=== PATIENT | male | born 1945 | race Caucasian/White ===

== ENCOUNTER → 2019-12-07 | Outpatient (CLI) | payer BC, OTHER ==
[~2019-12-07] MED LIST: ASPIRIN325 PO; AZOR 10-40 MG1 EACH PO; BAYER ADVANCED500 MG PO; BYSTOLIC10 MG PO; BYSTOLIC20 MG PO; CATAPRES-TTS 20.2 MG TD; CENTRUM SPECIA1 EAC1 PO; CLONIDINE HCL0.2 M2 PO; CLOPIDOGREL75 MG PO; EFFIENT10 MG PO; FENOFIBRATE134 MG PO; FISH OIL SOFTG1 EACH PO; GLUCOPHAGE500 MG PO; HYDROCHLOROTHIA25 M1 PO; HYTRIN 5 M5 MG/1 CAP PO; LIPITOR80 MG PO; NITROGLYCERIN0.4 MG SL
== END ==
LOC: SJCVCIMAG 09:22
DX: R06.02 Shortness of breath (principal); I25.10 Atherosclerotic heart disease of native coronary artery without angina pectoris; I65.23 Occlusion and stenosis of bilateral carotid arteries; E78.00 Pure hypercholesterolemia, unspecified; I10 Essential (primary) hypertension; I35.0 Nonrheumatic aortic (valve) stenosis; R79.89 Other specified abnormal findings of blood chemistry; R94.39 Abnormal result of other cardiovascular function study; Z87.891 Personal history of nicotine dependence

== ENCOUNTER → 2019-12-15 | Outpatient (CLI) | payer BC, OTHER ==
[~2019-12-15] VITALS: Ht 180.3 cm; Wt 121.6 kg
[~2019-12-15] MED LIST changes: +AMARYL2 M1 PO; +ASA81BEC PO; +EDARBYCLOR 40-1 EAC1 PO; +GLUCOSAMINE &1 EACH PO; +MECLIZINE HCL25 MG PO; +NORVASC10 MG PO; +ROSUVASTATIN CA20 MG PO; +SINGULAIR 10 MG10 MG PO; +SPIRONOLACTONE25 MG PO; +SYMBICORT80 MCG/4.1 INH; +TERAZOSIN HCL10 MG PO; +TRESIBA100 UNIT/1 SUBQ; +TURMERIC 500 M1 EACH PO
[2019-12-15 08:55] LABS: CALCIUM 9.4 mg/dL (8.5-10.1); CREATININE 1.2 mg/dL (0.7-1.3); POTASSIUM 4.4 mmol/L (3.5-5.1)
[2019-12-15 09:34] LABS: HEMATOCRIT 38.9 % (42.0-52.0); MCH 29.8 pg (26.0-34.0); MCHC 33.4 g/dL (28.0-37.0); MCV 89.3 fL (80.0-100.0); RBC 4.36 mil/uL (4.50-6.00); RDW 14.9 % (10.5-14.5); WBC 8.1 thou/uL (4.0-11.0)
[2019-12-15 09:41] VITALS: BP 132/49
--- NOTE | 2019-12-15 09:49 | EKG ---
[facility] [place] [place] [address] ELECTROCARDIOGRAM REPORT Name: Rudy GERMAN Room #: REG [facility].#: [id number] Admission: 12/15/19 Attend Phys: Burt Bright MD, Discharge: Date of : 47 Report #: [id number] THIS REPORT FOR: cc: ABIEL SOUTH Physician not on staff Luis Carlos Amezquita MD ~ THIS REPORT FOR: //name// [facility] Test Date: 2019-12-15 Test Time: 09:16:36 Pat Name: Rudy GERMAN Department: Room: Gender: Wholesale Account Manager: Fariba ROGERS : 1945 Requested By: Burt Bright Order Number: [id number] MD: Luis Carlos Amezquita Measurements Intervals [employer] Rate: 77 P: 35 IL: 242 QRS: -48 QRSD: 136 T: 85 QT: 409 QTc: 463 Interpretive Statements Sinus rhythm Prolonged IL interval Left bundle branch block Compared to ECG 05/07/2013 07:12:54 First degree AV block now present Left-axis deviation no longer present Electronically Signed On 12-15-2019 9:48:09 CDT by Luis Carlos Amezquita [email or web address] <ELECTRONICALLY SIGNED> By: Luis Carlos Amezquita MD 12/15/1947 5 5 Luis Carlos Amezquita MD /EPI
[2019-12-15 15:13] LABS: ABSOLUTE NEUTROPHILS 5.3 thou/uL (1.4-8.2); BASOPHILS 0.4 % (0.0-2.0); EOSINOPHILS 1.3 % (0.0-3.0); HEMATOCRIT 38.4 % (42.0-52.0); HEMOGLOBIN 12.9 gm/dL (14.0-18.0); LYMPHOCYTES 17.3 % (24.0-44.0); MCH 29.9 pg (26.0-34.0); MCHC 33.6 g/dL (28.0-37.0); MCV 89.2 fL (80.0-100.0); MONOCYTES 9.5 % (1.0-8.0); PLATELET COUNT 194 thou/uL (150-400); POLYS 71.5 % (36.0-66.0); RDW 14.8 % (10.5-14.5); WBC 7.4 thou/uL (4.0-11.0)
[2019-12-15 15:19] LABS: CALCIUM 8.8 mg/dL (8.5-10.1); CREATININE 1.2 mg/dL (0.7-1.3); POTASSIUM 4.6 mmol/L (3.5-5.1)
[2019-12-15 15:22] LABS: APTT 25.8 Seconds (24.5-32.8); INR 1.1; PROTIME 11.1 Seconds (9.3-11.4)
[2019-12-15 15:24] LABS: TOTAL BILIRUBIN 1.4 mg/dL (<0.1-1.0); TOTAL PROTEIN 7.8 g/dL (6.4-8.2)
[2019-12-15 16:25] LABS: URINE BILIRUBIN NEGATIVE (Negative); URINE BLOOD NEGATIVE (Negative); URINE CLARITY CLEAR; URINE COLOR YELLOW; URINE GLUCOSE-RANDOM* NEGATIVE (Negative); URINE KETONES NEGATIVE (Negative); URINE LEUKOCYTES-REFLEX NEGATIVE (Negative); URINE NITRITE-REFLEX NEGATIVE (Negative); URINE PROTEIN (DIPSTICK) NEGATIVE (Negative); URINE UROBILINOGEN 0.2 E.U./dl (0.2-1.0)
[2019-12-16 04:07] LABS: GLYCOHEMOGLOBIN (HGB A1C) 6.9 % (4.8-5.6)
--- NOTE | 2019-12-16 16:35 | CATHLAB ---
[facility] [place] [address] [place] [address] INVASIVE PROCEDURE REPORT Name: MAXIRudy LLOYDROBERT Room #: REG ELYSE DixonChau#: [id number] Admission: 12/15/19 Attend Phys: Burt Bright MD, Discharge: Date of : 47 Report #: [id number] THIS REPORT FOR: cc: ABIEL SOUTH Physician not on staff Burt Bright MD [facility] ~ APPROVED REPORT Study performed: 12/15/2019 12:39:10 Patient Details Patient Status: Out-Patient Room #: The patient is a 74 year-old male Event Personnel Burt Bright Director Of Psychiatry, Vaishnavi Peter RN RN, Fred Raman RT(R)(CV) Job Kennedy Sherra RTR Monitor Procedures Performed Art Access - R femoral artery* Willian Access - R femoral vein Right and Left Heart Cath w/or w/o Coronarie [id number] [facility] Aortogram Abdominal Peripheral Angio [id number] Initial Mod Sed Same Phys/QHP [facility] [id number] Mod Sed Same Phys/QHP Ea [id number] Procedure Narrative The Right Groin^ was infiltrated with 1% Lidocaine subcutaneous anesthesia. A Right Heart Catheterization was performed with a 7 Fr. Wetmore-Omar catheter and pressure were recorded. Cardiac outputs were obtained by the Thermal Dilution method. A PINNACLE 6FR Sheath #[id number] sheath was inserted into the RFA^. Coronary angiography was performed using coronary diagnostic catheters. The right coronary system was accessed and visualized with a JR4 catheter. The left coronary system was accessed and visualized with a JL4 catheter. The left ventricle was accessed and visualized with a PIGTAIL catheter. Left ventriculogram was performed in 30 degree projection. An aortogram of the abdominal aorta was performed. Closure device was deployed with a 6 Fr MYNX CONTROL 6F/7F L#[id number]. Hemostasis was obtained with manual pressure following sheath removal without any complications. The patient tolerated the procedure well and there were no complications associated with the procedure. There was no hematoma. Intraoperative Conscious Sedation [facility] [address] [place] [address] INVASIVE PROCEDURE REPORT Name: Rudy GERMAN Room #: LLOYD Hartman#: [id number] Admission: 12/15/19 Attend Phys: Burt Bright, Discharge: Date of : 47 Report #: [id number] Sedation start time: 1307 Case end Time: 1346 Fentanyl 50 mcg Versed 1 mg Fluoro Time: 4.39 minutes Dose: DAP 7336.90 cGycm2 660 mGy Contrast Type and Amount: Visipaque 110 ml Hemodynamics The right atrial mean pressure is 4 mmHg. The right ventricular pressure is 44/-3 mmHg. The pulmonary artery pressure is 43/5 mmHg with a mean of 21 mmHg. The mean pulmonary capillary wedge pressure is 13 mmHg. The aortic pressure is 153/64 mmHg with a mean of 28 mmHg. The left ventricular pressure is 153/6 mmHg with a mean of mmHg. The left ventricular end diastolic pressure is 18 mmHg. The cardiac output using thermo method is 6.55 L/min. The cardiac index using thermo method is 2.73 L/min/m2. Conclusion #1. Normal left ventricular size and systolic function lower limits of normal EF 50 to 55% #2 left main moderate size giving rise to LAD and circumflex #3 the LAD is significant ostial proximal calcification in the 90% range. Mild proximal disease well preserved distal vessel mildly diseased this does wrap the apex. #4 circumflex OM also has a subtotal ostial stenosis but it does briskly fill a large OM system #5 dominant right with mild disease giving rise into the distal right actually has subtotally occluded with some collateral filling to the PDA. There is a large posterior lateral branch which remains patent. #6 abdominal aorta is mildly ectatic no significant aneurysm is noted. Diffuse calcification. Recommendations and plan: Continue aggressive risk factor modification patient is pain-free without EKG changes. Will obtain CV surgical consultation. <ELECTRONICALLY SIGNED> By: Burt Bright MD, FACC 12/16/19 163 163 32 Burt Bright MD, FACC /INF
== END | disposition home or self-care (01) ==
LOC: CATH 07:51
PROVIDERS: Internal Medicine Cardiovascular Disease; Physician Assistant
DX: I25.10 Atherosclerotic heart disease of native coronary artery without angina pectoris (principal); I10 Essential (primary) hypertension; E11.9 Type 2 diabetes mellitus without complications; E78.5 Hyperlipidemia, unspecified; Z98.890 Other specified postprocedural states; Z79.899 Other long term (current) drug therapy; Z90.49 Acquired absence of other specified parts of digestive tract; Z87.891 Personal history of nicotine dependence; Z79.4 Long term (current) use of insulin; Z91.041 Radiographic dye allergy status; Z88.8 Allergy status to other drugs, medicaments and biological substances; Z01.818 Encounter for other preprocedural examination; Z79.01 Long term (current) use of anticoagulants

== ENCOUNTER → 2019-12-21 | Outpatient (CLI) | payer BC, OTHER ==
[~2019-12-21] MED LIST changes: +FISH OIL 1,0001 EAC9 PO; +MULTIVITAMINS1 EAC7 PO; +POTASSIUM GLUC500 MG PO; +PROBIOTIC1 EAC7 PO; +XANAX 0.25 MG0.25 MG PO
== END ==
LOC: SJCVCIMAG 09:20
DX: I65.23 Occlusion and stenosis of bilateral carotid arteries (principal); I25.10 Atherosclerotic heart disease of native coronary artery without angina pectoris

== ENCOUNTER 2019-12-27 06:38 | Inpatient (IN) | payer BC, OTHER ==
[~2019-12-27] VITALS: Ht 180.3 cm; Wt 122.5 kg
[2019-12-27 07:58] VITALS: BP 138/58
[2019-12-27 12:40] LABS: HEMATOCRIT 24.2 % (42.0-52.0); HEMOGLOBIN 8.2 gm/dL (14.0-18.0); MCH 30.5 pg (26.0-34.0); MCHC 33.9 g/dL (28.0-37.0); MCV 89.9 fL (80.0-100.0); RBC 2.69 mil/uL (4.50-6.00); RDW 14.3 % (10.5-14.5); WBC 10.7 thou/uL (4.0-11.0)
[2019-12-27 12:53] LABS: APTT 29.5 Seconds (24.5-32.8); FIBRINOGEN 174.2 mg/dL (210-360); INR 1.4; PROTIME 14.4 Seconds (9.3-11.4)
[2019-12-27 13:38] LABS: POC BE -3 mmol/L (-2.0 to +3.0); POC CA IONIZED 4.3 mg/dL (4.5-5.3); POC GLUCOSE 241 mg/dL (70-99); POC HCO3 21.7 mmol/L (22.0-26.0); POC HEMOGLOBIN 7.5 g/dL (14.0-18.0); POC POTASSIUM 4.8 mmol/L (3.5-5.1); POC SODIUM 136 mmol/L (136-145); POC pH 7.388 (7.360-7.450)
[2019-12-27 13:38] LABS: POC BE -2 mmol/L (-2.0 to +3.0); POC CA IONIZED 4.4 mg/dL (4.5-5.3); POC GLUCOSE 231 mg/dL (70-99); POC HEMOGLOBIN 7.8 g/dL (14.0-18.0); POC POTASSIUM 4.5 mmol/L (3.5-5.1); POC SODIUM 137 mmol/L (136-145); POC pCO2 38.2 mmHg (35.0-45.0); POC pH 7.388 (7.360-7.450)
[2019-12-27 13:38] LABS: POC BE -1 mmol/L (-2.0 to +3.0); POC CA IONIZED 4.3 mg/dL (4.5-5.3); POC GLUCOSE 219 mg/dL (70-99); POC HCO3 24.7 mmol/L (22.0-26.0); POC HEMOGLOBIN 8.5 g/dL (14.0-18.0); POC POTASSIUM 4.4 mmol/L (3.5-5.1); POC SODIUM 137 mmol/L (136-145); POC pH 7.367 (7.360-7.450)
[2019-12-27 13:38] LABS: POC BE 0 mmol/L (-2.0 to +3.0); POC GLUCOSE 134 mg/dL (70-99); POC HCO3 25.5 mmol/L (22.0-26.0); POC HEMOGLOBIN 10.9 g/dL (14.0-18.0); POC POTASSIUM 4.5 mmol/L (3.5-5.1); POC SODIUM 139 mmol/L (136-145); POC pCO2 43.3 mmHg (35.0-45.0); POC pH 7.378 (7.360-7.450)
[2019-12-27 13:38] LABS: POC BE 0 mmol/L (-2.0 to +3.0); POC CA IONIZED 4.7 mg/dL (4.5-5.3); POC GLUCOSE 180 mg/dL (70-99); POC HCO3 25.6 mmol/L (22.0-26.0); POC HEMOGLOBIN 9.9 g/dL (14.0-18.0); POC POTASSIUM 4.5 mmol/L (3.5-5.1); POC SODIUM 138 mmol/L (136-145); POC pCO2 45.8 mmHg (35.0-45.0); POC pH 7.355 (7.360-7.450)
[2019-12-27 13:38] LABS: POC BE -5 mmol/L (-2.0 to +3.0); POC CA IONIZED 4.6 mg/dL (4.5-5.3); POC GLUCOSE 188 mg/dL (70-99); POC HCO3 21.5 mmol/L (22.0-26.0); POC HEMOGLOBIN 8.8 g/dL (14.0-18.0); POC POTASSIUM 4.2 mmol/L (3.5-5.1); POC SODIUM 140 mmol/L (136-145); POC pCO2 41.9 mmHg (35.0-45.0); POC pH 7.319 (7.360-7.450)
[2019-12-27 13:38] LABS: POC BE -1 mmol/L (-2.0 to +3.0); POC CA IONIZED 4.3 mg/dL (4.5-5.3); POC GLUCOSE 246 mg/dL (70-99); POC HCO3 23.9 mmol/L (22.0-26.0); POC HEMOGLOBIN 8.2 g/dL (14.0-18.0); POC POTASSIUM 4.4 mmol/L (3.5-5.1); POC SODIUM 138 mmol/L (136-145); POC pCO2 41.5 mmHg (35.0-45.0); POC pH 7.368 (7.360-7.450)
[2019-12-27 13:39] LABS: POC BE -3 mmol/L (-2.0 to +3.0); POC CA IONIZED 4.7 mg/dL (4.5-5.3); POC GLUCOSE 234 mg/dL (70-99); POC HCO3 22.3 mmol/L (22.0-26.0); POC HEMOGLOBIN 7.1 g/dL (14.0-18.0); POC POTASSIUM 4.2 mmol/L (3.5-5.1); POC SODIUM 138 mmol/L (136-145); POC pH 7.343 (7.360-7.450)
[2019-12-27 14:07] VITALS: BP 111/52
[2019-12-27 14:20] LABS: HEMATOCRIT 29.6 % (42.0-52.0); HEMOGLOBIN 9.8 gm/dL (14.0-18.0); MCH 29.9 pg (26.0-34.0); MCHC 33.3 g/dL (28.0-37.0); MCV 89.9 fL (80.0-100.0); RBC 3.29 mil/uL (4.50-6.00); RDW 14.6 % (10.5-14.5); WBC 14.7 thou/uL (4.0-11.0)
[2019-12-27 14:24] LABS: CALCIUM 7.3 mg/dL (8.5-10.1); CREATININE 1.3 mg/dL (0.7-1.3); MAGNESIUM 1.7 mg/dL (1.8-2.4); POTASSIUM 4.3 mmol/L (3.5-5.1)
[2019-12-27 14:26] LABS: APTT 28.6 Seconds (24.5-32.8); INR 1.2; PROTIME 12.3 Seconds (9.3-11.4)
[2019-12-27 15:14] LABS: BE(vivo) -6.1 mmol/L (-2 to +3); PCO2 41.7 mmHg (35.0-45.0); PO2 88.7 mmHg (80.0-100.0); pH 7.298 (7.360-7.450); sO2 95.9 % (92.0-98.0)
[2019-12-27 15:40] LABS: BE(vivo) -5.6 mmol/L (-2 to +3); PCO2 39.7 mmHg (35.0-45.0); PO2 89.2 mmHg (80.0-100.0); pH 7.321 (7.360-7.450); sO2 96.2 % (92.0-98.0)
[2019-12-27 16:00] VITALS: BP 110/51
[2019-12-27 17:04] VITALS: BP 111/52
[2019-12-27 17:53] LABS: BE(vivo) -3.6 mmol/L (-2 to +3); HCO3 21.4 mmol/L (22.0-26.0); PCO2 38.6 mmHg (35.0-45.0); PO2 84.5 mmHg (80.0-100.0); pH 7.362 (7.360-7.450); sO2 96.1 % (92.0-98.0)
[2019-12-28 06:03] LABS: HEMATOCRIT 27.4 % (42.0-52.0); HEMOGLOBIN 9.4 gm/dL (14.0-18.0); MCH 30.7 pg (26.0-34.0); MCHC 34.2 g/dL (28.0-37.0); MCV 89.7 fL (80.0-100.0); RBC 3.06 mil/uL (4.50-6.00); RDW 14.6 % (10.5-14.5); WBC 9.1 thou/uL (4.0-11.0)
[2019-12-28 06:11] LABS: CALCIUM 7.6 mg/dL (8.5-10.1); CREATININE 1.2 mg/dL (0.7-1.3); MAGNESIUM 1.7 mg/dL (1.8-2.4)
--- NOTE | 2019-12-28 07:58 | EKG ---
[facility] [place] [place] [address] ELECTROCARDIOGRAM REPORT Name: Rudy GERMAN Room #: 248-P ADM IN M.R.#: [id number] Admission: 12/27/19 Attend Phys: Walker Suarez MD Discharge: Date of : 47 Report #: [id number] THIS REPORT FOR: cc: ABIEL SOUTH Physician not on staff Cyrus Laguna MD [facility] ~ THIS REPORT FOR: //name// [facility] Test Date: 2019-12-27 Test Time: 14:43:16 Pat Name: Rudy GERMAN Department: Room: [facility] Gender: M Computer Engineering Technologist: Dayana FRANCIS : 1945 Requested By: Benitez Pabon Order Number: [id number] MD: Cyrus Laguna Measurements Intervals [place] Rate: 88 P: 253 WI: 181 QRS: -58 QRSD: 137 T: 132 QT: 406 QTc: 492 Interpretive Statements Sinus or ectopic atrial rhythm Left bundle branch block Baseline wander in lead(s) III,aVF Compared to ECG 12/15/2019 09:16:36 No significant change was found Electronically Signed On 12-28-2019 7:57:00 CDT by Cyrus Laguna [email or web address] <ELECTRONICALLY SIGNED> By: Cyrus Laguna MD, [facility] 12/28/19 0757 1443 1443 Cyrus Laguna MD, [facility] /EPI
--- NOTE | 2019-12-28 08:12 | EKG ---
[facility] [place] [address] [place] [address] ELECTROCARDIOGRAM REPORT Name: Rudy GERMAN Room #: 248-P ADM IN M.R.#: [id number] Admission: 12/27/19 Attend Phys: Walker Suarez MD Discharge: Date of : 47 Report #: [id number] THIS REPORT FOR: cc: ABIEL SOUTH Physician not on staff Cyrus Laguna MD [facility] THIS REPORT FOR: //name// [facility] Test Date: 2019-12-28 Test Time: 07:23:30 Pat Name: Rudy GERMAN Department: Room: 248 Gender: M Accounts Manager: JENNIFER : 1945 Requested By: Benitez Pabon Order Number: [id number] MD: Cyrus Laguna Measurements Intervals [place] Rate: 81 P: -6 PA: 149 QRS: -43 QRSD: 132 T: 104 QT: 393 QTc: 457 Interpretive Statements Sinus rhythm Left bundle branch block Compared to ECG 12/15/2019 09:16:36 No significant changes found Electronically Signed On 12-28-2019 8:11:07 CDT by Cyrus Laguna [email or web address] <ELECTRONICALLY SIGNED> By: Cyrus Laguna MD, FAC 12/28/19 0811 0723 2 Cyrus Laguna MD, [facility] /EPI
[2019-12-28 10:45] LABS: BE(vivo) -3.8 mmol/L (-2 to +3); HCO3 20.2 mmol/L (22.0-26.0); PCO2 32.5 mmHg (35.0-45.0); PO2 56.3 mmHg (80.0-100.0); pH 7.411 (7.360-7.450)
[2019-12-28 15:55] VITALS: BP 134/51
[2019-12-28 16:01] VITALS: BP 139/58
[2019-12-28 17:01] VITALS: BP 132/50
[2019-12-28 18:00] VITALS: BP 118/82
[2019-12-28 22:19] VITALS: BP 125/51
[2019-12-28 23:01] VITALS: BP 116/45
[2019-12-29] VITALS (16 sets, daily range): BP systolic 98–132; BP diastolic 31–55
[2019-12-29 06:41] LABS: HEMATOCRIT 25.2 % (42.0-52.0); HEMOGLOBIN 8.7 gm/dL (14.0-18.0); MCH 30.9 pg (26.0-34.0); MCHC 34.4 g/dL (28.0-37.0); RBC 2.8 mil/uL (4.50-6.00); RDW 15.4 % (10.5-14.5)
[2019-12-29 06:47] LABS: CREATININE 1.5 mg/dL (0.7-1.3); POTASSIUM 4.3 mmol/L (3.5-5.1)
--- NOTE | 2019-12-29 07:52 | O ---
[facility] [place] [address] [place] [address] OPERATIVE REPORT Name: Rudy GERMAN JR Room #: 248-P ADM IN M.R.#: [id number] Admission: 12/27/19 Attend Phys: Walker Suarez MD Discharge: Date of : 47 Report #: [id number] THIS REPORT FOR: cc: ABIEL SOUTH Physician not on staff Walker Suarez MD ~ CC: Walker Suarez Physician staff ABIEL SOUTH DATE OF SERVICE: 12/27/2019 PREOPERATIVE DIAGNOSIS: Coronary artery disease. POSTOPERATIVE DIAGNOSIS: Coronary artery disease. OPERATION: Coronary artery bypass x 4 including left internal mammary artery to left anterior descending artery, saphenous vein to marginal 1 and marginal 2, and saphenous vein to posterior descending artery. SURGEON: Walker Suarez MD TELEGRAPH REPEATER TECHNICIAN: Kamilah Arce ANESTHESIA: General. INDICATIONS: The patient is a 74-year-old with coronary artery disease. The patient presents with shortness of breath and decrease in exercise tolerance. Nuclear stress test was positive and catheterization demonstrated severe 3-vessel coronary disease. FINDINGS AND TECHNIQUE: After general anesthesia was established, saphenous vein was harvested using an endoscopic approach and prepared for use as a conduit. Exposure was obtained through median sternotomy. Left internal mammary artery was harvested from chest wall. Pericardial well was made. Cannulation sutures were placed. Heparin was given. Aorta was cannulated. Right atrium was cannulated. Cardioplegia needle was positioned in the aortic root. Retrograde cardioplegia catheter was placed in coronary sinus. Cardiopulmonary bypass was established. The aorta was cross-clamped. Antegrade and retrograde cardioplegia were given. Ice was poured into the pericardial well. The heart was stopped. During electromechanical arrest, the distal anastomoses were performed and end-to-side anastomosis was made between vein and the posterior descending [facility] [address] [place] [address] OPERATIVE REPORT Name: Rudy GERMAN JR Room #: 248-P [facility] IN M.R.#: [id number] Admission: 12/27/19 Attend Phys: Walker Suarez MD Discharge: Date of : 47 Report #: [id number]. Cold cardioplegia was given. Separate segment of vein was sewn in end-to-side fashion to the distal marginal. Cold cardioplegia was given. Same segment of vein was sewn in ekxe-jh-rcoj fashion to the first marginal. Cold cardioplegia was given. Left internal mammary artery was sewn in end-to-side fashion to left anterior descending artery. Patency of this vessel was checked with the temperature technique. Cold cardioplegia was given. Two proximal anastomoses were performed. When these were complete, warm retrograde cardioplegia was given followed by warm continuous blood to the coronary sinus. When this infusion was complete, the cross-clamp was removed, de-airing maneuvers were performed. The anastomoses were inspected and found to be satisfactory. As the patient warmed, nice cardiac activity resumed, chest tubes and pacing wires were placed. A marker was placed around the proximal anastomoses. When the patient was warm, he was weaned from cardiopulmonary bypass. Venous cannula was removed. Protamine was given, the aortic cannula was removed. Flows were measured in the bypass grafts. When hemostasis was satisfactory, chest was irrigated with antibiotic solution and closed in the usual fashion. The patient was taken to the Intensive Care Unit in good condition having tolerated the procedure well. All counts were reported as correct. <ELECTRONICALLY SIGNED> By: Walker Suarez MD 12/29/19 0752 1554 1606 Walker Suarez MD /nt
[2019-12-30 00:06] VITALS: BP 144/55
[2019-12-30 04:12] VITALS: BP 151/51
[2019-12-30 07:00] VITALS: BP 106/61
[2019-12-30 09:03] LABS: CALCIUM 8.5 mg/dL (8.5-10.1); CREATININE 1.5 mg/dL (0.7-1.3); POTASSIUM 4.6 mmol/L (3.5-5.1)
[2019-12-30 11:20] VITALS: BP 110/45
[2019-12-30 16:10] VITALS: BP 135/48
[2019-12-30 19:01] VITALS: BP 142/51
[2019-12-31 05:20] LABS: HEMATOCRIT 25.1 % (42.0-52.0); HEMOGLOBIN 8.4 gm/dL (14.0-18.0); MCH 30.2 pg (26.0-34.0); MCHC 33.3 g/dL (28.0-37.0); MCV 90.7 fL (80.0-100.0); RBC 2.77 mil/uL (4.50-6.00); RDW 15.3 % (10.5-14.5); WBC 11.2 thou/uL (4.0-11.0)
[2019-12-31 05:42] LABS: CALCIUM 8.7 mg/dL (8.5-10.1); CREATININE 1.4 mg/dL (0.7-1.3); POTASSIUM 4.1 mmol/L (3.5-5.1)
[2019-12-31 06:59] VITALS: BP 154/58
[2019-12-31 08:19] VITALS: BP 153/70
--- NOTE | 2019-12-31 10:07 | EKG ---
[facility] [place] [address] ELECTROCARDIOGRAM REPORT Name: Rudy GERMAN Room #: 210-P ADM IN M.R.#: [id number] Admission: 12/27/19 Attend Phys: Walker Suarez MD Discharge: Date of : 47 Report #: [id number] THIS REPORT FOR: cc: ABIEL SOUTH Physician not on staff Cyrus Laguna MD [facility] ~ THIS REPORT FOR: //name// [facility] Test Date: 2019-12-31 Test Time: 07:18:28 Pat Name: Rudy GERMAN Department: Room: 210 P Gender: M Filler Picker: : 1945 Requested By: Adeel Lira Order Number: [id number] MD: Cyrus Laguna Measurements Intervals [place] Rate: 78 P: 23 NC: 152 QRS: -17 QRSD: 135 T: 103 QT: 411 QTc: 469 Interpretive Statements Sinus rhythm Left bundle branch block Compared to ECG 12/28/2019 07:23:30 No significant changes Electronically Signed On 12-31-2019 10:05:29 CDT by Cyrus Laguna [email or web address] <ELECTRONICALLY SIGNED> By: Cyrus Laguna MD, FAC 12/31/19 1005 7 7 Cyrus Laguna MD, [facility] /EPI
[2019-12-31 11:30] VITALS: BP 141/55
[2019-12-31 17:33] VITALS: BP 126/41
[2019-12-31 19:32] VITALS: BP 133/48
[2020-01-01 04:37] VITALS: BP 137/39
[2020-01-01 08:00] VITALS: BP 124/45
[2020-01-01] MEDS ORDERED: PACERONE 200 M200 M1 PO ×2 (09:22)
[2020-01-01 14:25] VITALS: BP 124/45
== END 2020-01-01 15:30 | disposition home or self-care (01) | DRG 236 ==
LOC: TBA 06:38 → 2N 06:38 → PRE 08:47 → ICU 14:41 → PRE 15:15 → 2N 12-29 14:03
PROVIDERS: Nurse Practitioner Adult Health; Physician Assistant; ADMIT Surgery Vascular Surgery
PROC: 05HY33Z Insertion of Infusion Device into Upper Vein, Percutaneous Approach (ICD-10-PCS; principal; 2019-12-27)
PROC: 021209W Bypass Coronary Artery, Three Arteries from Aorta with Autologous Venous Tissue, Open Approach (ICD-10-PCS; principal; 2019-12-27)
PROC: 06BQ4ZZ Excision of Left Saphenous Vein, Percutaneous Endoscopic Approach (ICD-10-PCS; principal; 2019-12-27)
PROC: 5A1221Z Performance of Cardiac Output, Continuous (ICD-10-PCS; principal; 2019-12-27)
PROC: 02100Z9 Bypass Coronary Artery, One Artery from Left Internal Mammary, Open Approach (ICD-10-PCS; principal; 2019-12-27)
DX: I25.10 Atherosclerotic heart disease of native coronary artery without angina pectoris (principal); D62 Acute posthemorrhagic anemia; J98.11 Atelectasis; N17.9 Acute kidney failure, unspecified; I50.30 Unspecified diastolic (congestive) heart failure; I13.0 Hypertensive heart and chronic kidney disease with heart failure and stage 1 through stage 4 chronic kidney disease, or unspecified chronic kidney disease; E78.5 Hyperlipidemia, unspecified; I65.29 Occlusion and stenosis of unspecified carotid artery; I35.0 Nonrheumatic aortic (valve) stenosis; E83.42 Hypomagnesemia; E11.65 Type 2 diabetes mellitus with hyperglycemia; N18.9 Chronic kidney disease, unspecified; E11.22 Type 2 diabetes mellitus with diabetic chronic kidney disease; R33.9 Retention of urine, unspecified; I95.9 Hypotension, unspecified; Z91.048 Other nonmedicinal substance allergy status; Z79.899 Other long term (current) drug therapy; Z79.82 Long term (current) use of aspirin; Z87.891 Personal history of nicotine dependence; Z79.4 Long term (current) use of insulin; Z03.818 Encounter for observation for suspected exposure to other biological agents ruled out; Z82.49 Family history of ischemic heart disease and other diseases of the circulatory system
CPT/HCPCS: 10078; 10081; 47000; 47001; 47002; 47297; 48888; 50010; 50249; 50331; 50409; 50456; 50498; 50668; 51301; 52131; 52259; 52287; 52314; 53327; 53358; 54118; 56455; 56524; 56525; 56526; 56527; 56528; 56531; 56534; 56668; 56760; 56898; 57093; 57167; 57242; 62110; 62950

== ENCOUNTER → 2020-04-23 | Outpatient (CLI) | payer BC, OTHER ==
[~2020-04-23] MED LIST changes: +PACERONE 200 M200 M1 PO
== END ==
LOC: SJCVCIMAG 09:59
PROVIDERS: ATTEND Internal Medicine Cardiovascular Disease
DX: I08.0 Rheumatic disorders of both mitral and aortic valves (principal); I65.23 Occlusion and stenosis of bilateral carotid arteries; R00.0 Tachycardia, unspecified; E78.00 Pure hypercholesterolemia, unspecified; I25.10 Atherosclerotic heart disease of native coronary artery without angina pectoris; E66.9 Obesity, unspecified; Z95.1 Presence of aortocoronary bypass graft; Z87.891 Personal history of nicotine dependence